=== PATIENT | female | born 1975 | race Two or more races ===

== ENCOUNTER 2016-09-24 15:55 | Emergency (ER) | payer OTHER ==
[~2016-09-24] VITALS: Ht 165.1 cm; Wt 139.7 kg
[2016-09-24 15:55] VITALS: BP 116/69
[2016-09-24] MEDS: IPRATROPIUM NEB FS 0.5 MG/2.5 ML AMPUL.NEB NEB ONE (16:30)
[2016-09-24] MEDS: ALBUTEROL FS 2.5 MG/3 ML VIAL.NEB CONTNEB ONE (16:30)
[2016-09-24] MEDS ORDERED: IPRATROPIUM NEB FS 0.5 MG/2.5 ML AMPUL.NEB ONE (16:35)
[2016-09-24] MEDS ORDERED: ALBUTEROL FS 2.5 MG/3 ML VIAL.NEB ONE (16:35)
[2016-09-24] MEDS ORDERED: MAG HYDROX/AL HYDROX/SIMETH 30 ML UDC ONE (17:49)
[2016-09-24] MEDS: MAG HYDROX/AL HYDROX/SIMETH 30 ML UDC PO ONE (17:56)
[2016-09-24] MEDS: HYOSCYAMINE SULFATE 0.125 MG TAB.SUBL SL PRN (17:58)
== END 2016-09-24 18:20 | disposition home or self-care (01) ==
LOC: ER 15:57
DX: K21.9 Gastro-esophageal reflux disease without esophagitis (principal); J45.909 Unspecified asthma, uncomplicated; E66.01 Morbid (severe) obesity due to excess calories; R10.13 Epigastric pain; I10 Essential (primary) hypertension; I25.2 Old myocardial infarction
CPT/HCPCS: 71010; 93005; 94640 ×2; 99284; A4606; Z7610